=== PATIENT | female | born 1990 | race Hispanic/Latino ===

== ENCOUNTER 2020-03-30 22:19 | Observation (INO) | payer SELFPAY ==
[2020-03-30] MEDS ORDERED: SODIUM CHLORIDE 0.9% (FLUSH) 10 ML SYG IV PRN (22:27)
[2020-03-30] MEDS ORDERED: SODIUM CHLORIDE 0.9% 1000ML 1,000 ML IVS ONE (22:39)
--- NOTE | 2020-03-31 00:51 | ED.PDOC ---
History of Present Illness - General Chief Complaint: Bite: Animal/Insect/Human Stated Complaint: possible snake bite to left foot 3rd toe Time Seen by Provider: 03/30/20 23:14 Source: patient Exam Limitations: no limitations - History of Present Illness Initial Comments: COPPERHEAD SNAKEBITE IN FRONT YARD. Timing/Duration: constant Severity: moderate Improving Factors: nothing Worsening Factors: nothing Associated Symptoms: denies symptoms Allergies/Adverse Reactions: Allergies NO KNOWN ALLERGY Allergy (Verified 03/30/20 22:25) Home Medications: Ambulatory Orders FLUoxetine HCL [Prozac] 10 mg PO 03/30/20 Review of Systems - Review of Systems Constitutional: States: no symptoms reported EENTM: States: no symptoms reported Respiratory: States: no symptoms reported Cardiology: States: no symptoms reported Gastrointestinal/Abdominal: States: no symptoms reported Genitourinary: States: no symptoms reported Musculoskeletal: States: no symptoms reported Skin: States: lesions. Denies: rash Neurological: States: no symptoms reported Endocrine: States: no symptoms reported Hematologic/Lymphatic: States: no symptoms reported All other Systems: Reviewed and Negative Past Medical History (General) - Patient Medical History Hx Seizures: No Hx Stroke: No Hx Dementia: No Hx Asthma: No Hx of COPD: No Hx Cardiac Disorders: No Hx Congestive Heart Failure: No Hx Pacemaker: No Hx Hypertension: No Hx Thyroid Disease: No Hx Diabetes: No Hx Gastroesophageal Reflux: No Hx Renal Disease: No Hx Cancer: No Hx of HIV: No Hx Hepatitis C: No Hx MRSA: No - Vaccination History Hx Tetanus, Diphtheria Vaccination: Yes - 2016 Hx Influenza Vaccination: Yes Immunizations Up to Date: No - Social History Hx Tobacco Use: No Hx Chewing Tobacco Use: No Hx Alcohol Use: Yes Hx Substance Use: No Hx Substance Use Treatment: No Hx Depression: Yes - ON MEDICATION Feels Threatened In Home Enviroment: No Feels Threatened In a Relationship: No Hx Physical Abuse: No Hx Emotional Abuse: No Hx Suspected Abuse: No Family Medical History - Family History Mother Family History: No Known Living Status: Still Living Hx Family Asthma: No Hx Family Congestive Heart Failure: No Physical Exam - Physical Exam General Appearance: Alert, No apparent distress Eye Exam: bilateral normal Ears, Nose, Throat: normal ENT inspection, normal pharynx Neck: non-tender, supple Respiratory: lungs clear, normal breath sounds, no respiratory distress, no accessory muscle use Cardiovascular/Chest: normal peripheral pulses, regular rate, rhythm, no murmur Peripheral Pulses: radial,right: 2+, radial,left: 2+ Gastrointestinal/Abdominal: normal bowel sounds, non tender, soft Rectal Exam: deferred Back Exam: normal inspection, no CVA tenderness Extremity: no pedal edema, no calf tenderness Neurologic: alert, normal mood/affect Skin Exam: other - THERE IS A PINPOINT PUNCTURE LEÓN ON L MIDDLE TOE (3RD DIGIT) AND BETWEEN 3RD AND 4TH DIGITS. Lymphatic: no adenopathy Progress - Results/Orders Results/Orders: CBC: WBC AND NEUTS MILDLY ELEVATED. OTHER TESTS WNL: CMP, CARD ENZ, COAGS, D-DIMER, FIBRINOGEN, EKG. LEGAL OPERATIONS MANAGER-COLLIN IS NOT INDICATED FOR COPPERHEAD BITES. PT IS CURRENTLY ASX. POISON CONTROL RECOMMENDED HOSP ADMISSION FOR 8 HRS, IVF, AND REPEAT LABS IN AM (CBC, CMP, COAGS, FIBRINOGEN). I SPOKE WITH JANEL, HOSPITALIST, AND DR REGAN, SURGEON, WHO ACCEPTED FURTHER CARE. THANK YOU, [facility] [place]. Departure - Departure Clinical Impression: Neutrophilic leukocytosis Snake bite Qualifiers: Encounter type: initial encounter Qualified Code(s): W59.11XA - Bitten by nonvenomous snake, initial encounter Disposition: Admit Patient Condition: Good Departure Forms: ED Discharge - Pt. Copy, Patient Portal Self Enrollment Diet: resume usual diet Activity: increase activity as tolerated Home Medications: Ambulatory Orders FLUoxetine HCL [Prozac] 10 mg PO 03/30/20 Decision To Admit - Decistion To Admit Decision to Admit Reason: Admit from ER Decision to Admit Date: 03/31/20 Decision to Admit Time: 01:00
[2020-03-31] MEDS ORDERED: SODIUM CHLORIDE 0.9% 1000ML 1,000 ML IVS PRN ×2 (00:57→00:58)
[2020-03-31] MEDS ORDERED: SODIUM CHLORIDE 0.9% (FLUSH) 10 ML SYG IV PRN (02:22)
[2020-03-31] MEDS ORDERED: IV SET AND CAP CHANGE INJ INJ SCH (02:30)
[2020-03-31] MEDS ORDERED: traMADol HCL 50 MG TAB PO PRN (02:42)
[2020-03-31 08:44] VITALS: BP 110/68; TEMP 98.1; O2SAT 99
--- NOTE | 2020-03-31 10:37 | SSS ---
SUPERVISING PHYSICIAN: Carlos Enrique Terry MD DATE OF ADMISSION: 03/30/20 DATE OF DISCHARGE: 03/31/20 DISCHARGE DIAGNOSIS: 1. Possible copperhead bite on left third toe. 2. Urinary tract infection. 3. Anxiety, presently on an SSRI. HISTORY OF PRESENT ILLNESS: This is a 29-year-old female patient who was walking across the yard last night. They have killed multiple copperhead snakes in their yard over the last 2 to 3 days. She felt a sting on the third toe of her left foot. When she came to the Emergency Room, her initial vital signs showed temperature 97, heart rate 97, blood pressure 163/93, respiratory rate 20, O2 99%. WBCs 12,400, the remainder of her CBC was unremarkable. D-dimer was less than 131 and PT/INR as well as PTT and fibrinogen were all within normal limits. Her electrolytes are basically within normal limits and liver enzymes were within normal limits. Urinalysis was positive for urine nitrites and a small amount of urine leukocyte esterase as well as 20 to 30 WBCs and 4+ urine bacteria. She was given fluids in the ER as well as Rocephin for her urinary tract infection. Poison control was called. They recommended the patient be placed in observation overnight and to repeat her lab this morning including her coagulation studies and if they were normal, she could be discharged. PAST MEDICAL HISTORY: 1. Anxiety. PAST SURGICAL HISTORY: 1. . 2. Lipoma removal from her right axilla. 3. Appendectomy. OUTPATIENT MEDICATIONS: 1. Fluoxetine. ALLERGIES: NO KNOWN DRUG ALLERGIES. SOCIAL HISTORY: She lives in [place]. She has no history of tobacco, ETOH or illicit drug use. REVIEW OF SYSTEMS: Negative except as per history of present illness. PHYSICAL EXAMINATION: VITAL SIGNS: Temperature 98.1, heart rate 79, blood pressure 110/68, respiratory rate 16, O2 saturation 99% on room air. GENERAL: This is a 29-year-old female patient who is lying in her hospital bed. She is in no acute distress. HEENT: Normocephalic, atraumatic. Pupils are equal and reactive. Oropharynx is clear. NECK: Supple without mass. RESPIRATORY: Essentially clear to auscultation bilaterally. CARDIOVASCULAR: Regular rate and rhythm. GASTROINTESTINAL: Abdomen is soft, nondistended, nontender. Bowel sounds are positive. EXTREMITIES: She does have a pinpoint puncture carmelita on her middle toe of her left foot. There is no redness or edema. It is mildly tender to palpation. NEUROLOGIC: Awake, alert and oriented times three. Cranial nerves II-XII are grossly intact as tested. LABORATORY: CBC is unremarkable. Coagulation studies this morning are negative. Electrolytes are within normal limits except for calcium slightly low at 8.3. Urine culture is pending. All other labs and films have been reviewed via the EMR. DISCHARGE PLAN: The patient will be discharged home in stable condition. She is to resume her previous diet and increase her activity as tolerated. She is to return to the hospital or followup with her primary care physician for any problems or complications. In addition to her routine home medications, I have sent cefdinir for her urinary tract infection. We will contact her once her urine culture has completed to change antibiotics if needed. DISCHARGE MEDICATIONS: 1. Fluoxetine. 2. Buspirone. 3. Cefdinir. #[id number] [facility]
== END 2020-03-31 10:20 | disposition home or self-care (01) ==
LOC: ER 22:19 → MS 03-31 01:21
PROVIDERS: ADMIT Nurse Practitioner Acute Care; ATTEND Nurse Practitioner Acute Care
DX: T63.061A Toxic effect of venom of other North and South American snake, accidental (unintentional), initial encounter (principal); N39.0 Urinary tract infection, site not specified; F41.9 Anxiety disorder, unspecified; Z79.899 Other long term (current) drug therapy; Y92.007 Garden or yard of unspecified non-institutional (private) residence as the place of occurrence of the external cause
CPT/HCPCS: 96360; J7030 ×2; 85379; 82553; 80053 ×2; 87086; 36415; 85384 ×2; 87077; 87186; 81001; 85025 ×2; 82550; 85730 ×2; 85610 ×2; 84484; 94760 ×2; 99285; 93005